=== PATIENT | male | born 1975 | race African-American/Black ===

== ENCOUNTER 2017-10-18 00:20 | Emergency (ER) | payer MEDICAID ==
[~2017-10-18] VITALS: Ht 185.4 cm; Wt 109.0 kg
[2017-10-18] MEDS ORDERED: SODIUM CHLORIDE 0.9% 1,000 ML IV ONE (04:15)
[2017-10-18] MEDS ORDERED: KETOROLAC 30MG/ML VIAL IV STA (04:15)
[2017-10-18 04:44] LABS: EOSINOPHILS % 5.9 % (0.0-5.0); HEMATOCRIT. 39.4 % (42.0-52.0); HEMOGLOBIN. 13.5 g/dL (14.0-18.0); LYMPHOCYTES % 27.7 % (20.0-50.0); MEAN CORPUSCULAR VOLUME 93.6 fL (80.0-94.0); NEUTROPHILS % 51.4 % (40.0-76.0); PLATELET 264 x1000/uL (130-400); RED BLOOD CELL COUNT 4.21 mill/uL (4.7-6.1); RED CELL DISTRIBUTION WIDTH 13.3 % (11.6-14.6)
[2017-10-18 04:55] LABS: CHLORIDE 104 mEq/L (98-107)
[2017-10-18 05:04] LABS: CARBON DIOXIDE 25 mEq/L (21-32)
[2017-10-18 05:20] VITALS: BP 121/81
== END 2017-10-18 06:09 | disposition home or self-care (01) ==
LOC: ER 01:54
DX: J18.9 Pneumonia, unspecified organism (principal); F17.200 Nicotine dependence, unspecified, uncomplicated
CPT/HCPCS: 36415; 71010; 80053; 85025; 96361; 96374; 99285; J1885; J7030; Z7610

== ENCOUNTER 2020-09-13 01:09 | Emergency (ER) | payer MEDICAID ==
[~2020-09-13] VITALS: Ht 188 cm; Wt 91.0 kg
[2020-09-13 01:12] VITALS: BP 147/105
[2020-09-13] MEDS ORDERED: ACETAMINOPHEN 325MG TABLET PO ONE (02:00)
== END 2020-09-13 01:55 | disposition home or self-care (01) ==
LOC: ER 01:11
DX: L03.115 Cellulitis of right lower limb (principal); Z98.890 Other specified postprocedural states
CPT/HCPCS: 99283